=== PATIENT | male | born 1995 | race Two or more races ===

== ENCOUNTER 2018-02-08 13:38 | Emergency (ER) | payer MEDICAID ==
[~2018-02-08] VITALS: Ht 177.8 cm; Wt 84.7 kg
[2018-02-08 13:46] VITALS: BP 108/69
== END 2018-02-08 14:52 | disposition home or self-care (01) ==
LOC: ED 14:45
DX: N61.1 Abscess of the breast and nipple (principal); Y04.1XXA Assault by human bite, initial encounter; Y93.89 Activity, other specified; Y99.8 Other external cause status; Y92.009 Unspecified place in unspecified non-institutional (private) residence as the place of occurrence of the external cause
CPT/HCPCS: 99283

== ENCOUNTER 2018-03-24 16:51 | Emergency (ER) | payer MEDICAID ==
[~2018-03-24] VITALS: Ht 175.3 cm; Wt 80.4 kg
[2018-03-24 17:11] VITALS: BP 117/83
[2018-03-24] MEDS ORDERED: FLUORESCEIN OPHTHALMIC 1 MG STRIP ONE (17:24)
[2018-03-24] MEDS ORDERED: PROPARACAINE OPHTH 0.5%, 15ML ONE (17:24)
[2018-03-24] MEDS ORDERED: FLUORESCEIN OPHTHALMIC 1 MG STRIP EACHEYE ONE (17:30)
[2018-03-24] MEDS ORDERED: PROPARACAINE OPHTH 0.5%, 15ML EACHEYE ONE (17:30)
== END 2018-03-24 19:34 | disposition home or self-care (01) ==
LOC: ED 19:28
DX: B30.1 Conjunctivitis due to adenovirus (principal)
CPT/HCPCS: 99283

== ENCOUNTER 2018-04-12 13:35 | Emergency (ER) | payer MEDICAID ==
[~2018-04-12] VITALS: Ht 177.8 cm; Wt 88.0 kg
[2018-04-12] MEDS ORDERED: BICT1TAB PO (14:07)
[2018-04-12] MEDS ORDERED: IBUPROFEN 200 MG TABLET PO ONE (14:30)
[2018-04-12] MEDS ORDERED: IBUPROFEN 200 MG TABLET ONE (14:59)
[2018-04-12 15:17] VITALS: BP 119/79
[2018-04-12 15:27] LABS: CULTURE INDICATED? YES; MICROSCOPIC INDICATED
== END 2018-04-12 15:22 | disposition home or self-care (01) ==
LOC: ED 15:01
DX: N45.3 Epididymo-orchitis (principal); F17.200 Nicotine dependence, unspecified, uncomplicated
CPT/HCPCS: 76870; 81001; 87086; 99285

== ENCOUNTER 2018-09-05 14:01 | Emergency (ER) | payer MEDICAID, OTHER ==
[~2018-09-05] VITALS: Ht 177.8 cm; Wt 82.0 kg
[~2018-09-05 14:01] MED LIST: BICT1TAB PO
[2018-09-05 14:22] VITALS: BP 128/87
== END 2018-09-05 15:22 | disposition home or self-care (01) ==
LOC: ED 14:52
DX: J01.10 Acute frontal sinusitis, unspecified (principal); J01.00 Acute maxillary sinusitis, unspecified; J34.0 Abscess, furuncle and carbuncle of nose
CPT/HCPCS: 99283

== ENCOUNTER 2020-10-19 13:31 | Emergency (ER) | payer OTHER ==
[~2020-10-19] VITALS: Ht 177.8 cm; Wt 95.0 kg
[2020-10-19 15:57] VITALS: BP 121/89
== END 2020-10-19 15:58 | disposition home or self-care (01) ==
LOC: ED 15:30
DX: J06.9 Acute upper respiratory infection, unspecified (principal); Z20.828 Contact with and (suspected) exposure to other viral communicable diseases; F17.200 Nicotine dependence, unspecified, uncomplicated
CPT/HCPCS: 36415; 86592; 86780; 87635; 99283

== ENCOUNTER 2020-10-21 14:02 | Emergency (ER) | payer OTHER ==
[~2020-10-21] VITALS: Ht 177.8 cm; Wt 96.0 kg
[2020-10-21 14:08] VITALS: BP 115/69
[2020-10-21] MEDS ORDERED: BICILLIN-LA 2,400,000 UNITS/4 ML IM ONE (14:30)
--- NOTE | 2020-10-21 14:33 | NUR ---
MED REQUEST SENT TO PHARMACY
--- NOTE | 2020-10-21 15:10 | NUR ---
DISCHARGE INSTRUCTIONS REVIEWED
== END 2020-10-21 15:16 | disposition home or self-care (01) ==
LOC: ED 14:43
DX: A51.0 Primary genital syphilis (principal); B34.9 Viral infection, unspecified; F17.290 Nicotine dependence, other tobacco product, uncomplicated
CPT/HCPCS: 96372; 99283; J0561

== ENCOUNTER 2021-02-27 13:15 | Emergency (ER) | payer OTHER ==
[~2021-02-27] VITALS: Ht 177.8 cm; Wt 97.8 kg
[2021-02-27] MEDS ORDERED: ONDANSETRON ODT 4 MG ONE (14:29)
[2021-02-27] MEDS ORDERED: ONDANSETRON ODT 4 MG PO ONE (14:30)
--- NOTE | 2021-02-27 14:31 | NUR ---
PT C/O OF N/V/D SINCE YESTERDAY AND PAIN IN BILATERAL LOWER ABD QUADRANTS. DENIES CP, SOB, AND HEADACHE. DECRIBES VOMIT CLEAR LIQUID AND DIARRHEA IS GREENISH AND WATERY.
[2021-02-27 16:00] VITALS: BP 131/81
== END 2021-02-27 16:02 | disposition home or self-care (01) ==
LOC: ED 15:51
DX: R11.2 Nausea with vomiting, unspecified (principal); R19.7 Diarrhea, unspecified; F17.210 Nicotine dependence, cigarettes, uncomplicated
CPT/HCPCS: 99283; Q0162